=== PATIENT | female | born 1950 | race Caucasian/White ===

== ENCOUNTER 2018-05-01 16:22 | Emergency (ER) | payer MEDICARE, OTHER ==
[~2018-05-01] VITALS: Ht 160 cm; Wt 118.0 kg
[~2018-05-01 16:22] MED LIST: ASPI-496 PO; AZIT500T PO; LEVO75TA PO; METFORMIN PO
[2018-05-01 17:42] LABS: RAPID INFLUENZA A Negative (Negative); RAPID INFLUENZA B Negative (Negative)
[2018-05-01 17:52] LABS: BASOPHILS % (AUTO) 1 % (0-1); EOSINOPHILS # (AUTO) 0.11 x10^3/uL (0-0.4); EOSINOPHILS % (AUTO) 1 % (1-7); LYMPHOCYTES # (AUTO) 0.98 x10^3/uL (1-3.4); LYMPHOCYTES % (AUTO) 11 % (22-44); MD NO; MEAN CORPUSCULAR HEMOGLOBIN 31.4 pg (27.0-34.8); MEAN CORPUSCULAR HGB CONC 34.1 g/dL (32.4-35.8); MEAN PLATELET VOLUME 8.8 fL (7.4-10.4); MONOCYTES # (AUTO) 0.81 x10^3/uL (0.2-0.8); MONOCYTES % (AUTO) 9 % (2-9); NEUTROPHILS # (AUTO) 7.39 x10^3/uL (1.8-6.8); NEUTROPHILS % (AUTO) 79 % (42-75); PLATELET COUNT 335 x10^3/uL (130-400); RED BLOOD COUNT 4.93 x10^6/uL (3.82-5.3); RED CELL DISTRIBUTION WIDTH 13.4 % (9.6-15.2)
[2018-05-01] MEDS ORDERED: ACETAMINOPHEN 500 MG TABLET ONE (17:57)
[2018-05-01] MEDS ORDERED: ACETAMINOPHEN 500 MG TABLET PO ONE (18:00)
[2018-05-01 18:01] LABS: ALBUMIN 3.7 g/dL (3.4-5.0); ANION GAP 6 mmol/L (5-15); CALCIUM 9.1 mg/dL (8.5-10.1); CHLORIDE 109 mmol/L (98-107); CREATININE 0.85 mg/dL (0.55-1.02)
[2018-05-01 18:10] LABS: FREE T4 (FREE THYROXINE) 1.05 ng/dL (0.76-1.46)
--- NOTE | 2018-05-01 18:36 | NUR ---
pt's chart up for recheck
--- NOTE | 2018-05-01 18:57 | NUR ---
BS REPORT OF PT FROM CLAUDETTE LANGFORD, AND ASSUMING CARE OF PT.
[2018-05-01 19:11] VITALS: BP 131/83
--- NOTE | 2018-05-01 19:59 | NUR ---
pt d/c with d/c summary. all questions answered. pt ambulated to registration desk with steady gait for d/c home.
== END 2018-05-01 20:02 | disposition home or self-care (01) ==
LOC: ED 19:55
DX: J06.9 Acute upper respiratory infection, unspecified (principal); Z87.891 Personal history of nicotine dependence
CPT/HCPCS: 36415; 71045; 80048; 82040; 84439; 84443; 85025; 87400; 99284